=== PATIENT | female | born 1955 | race African-American/Black ===

== ENCOUNTER 2017-12-03 17:24 | Emergency (ER) | payer OTHER ==
[2017-12-03] MEDS ORDERED: HYDROCODONE/APAP 5/325 MG TAB ONE (18:46)
--- NOTE | 2017-12-03 18:56 | RAD REPORT ---
EXAM DESCRIPTION: RAD - Knee Left 3 View - 12/03/2017 6:47 pm CLINICAL HISTORY: Left knee pain FINDINGS: No fracture or dislocation is seen. No significant bone or joint abnormality is seen
[2017-12-03 19:15] LABS: Urine Blood 1+ (NEG); Urine Glucose NEGATIVE (NEG); Urine Protein NEGATIVE (NEG); Urine Specific Gravity 1.025 (1.005-1.030); Urine pH 5.5 (5.0-7.0)
--- NOTE | 2017-12-03 19:18 | EDPHYS ---
Physician Documentation [facility] Name: Dilan Calzada Age: 62 yrs Sex: Female : 1955 Arrival Date: 12/03/2017 Time: 17:30 Bed 18 Private MD: ED Steven Rizo HPI: 12/03 18:19 This 62 yrs old Black Female presents to ER via Ambulatory with complaints of Leg Pain. jony 18:19 The patient presents with decreased range of motion, pain, swelling, tenderness. The jony complaints affect the posterior aspect of left knee. Context: The problem was sustained at an unknown site. Onset: The symptoms/episode began/occurred 2 day(s) ago. Modifying factors: The symptoms are alleviated by elevating leg, the symptoms are aggravated by movement, weight bearing, bending knee. Associated signs and symptoms: The patient has no apparent associated signs or symptoms. Treatment prior to arrival includes: prescription medications. The patient has experienced similar episodes in the past, a few times. Historical: - Allergies: 17:40 PENICILLINS; lk1 - Home Meds: 18:05 Lyrica Oral [Active]; Menest 0.625 mg oral tab 1 tab once daily [Active]; Dexilant 60 ap3 mg oral CpDB 1 cap once daily [Active]; montelukast 10 mg oral tab 1 tab once daily [Active]; Vitamin D Oral [Active]; Xanax 1 mg Oral tab as needed [Active]; levocetirizine 5 mg oral tab 1 tab once daily [Active]; Estroven 155 mg oral cap [Active]; meloxicam 15 mg oral tab [Active]; Calcium Carbonate Oral [Active]; - PMHx: 17:40 None; lk1 - PSHx: 17:40 torn meniscus right; bilateral shoulders; partial thyroidectomy; Hysterectomy; lk1 - Immunization history:: Adult Immunizations up to date. - Social history:: Smoking status: Patient/guardian denies using tobacco. - Family history:: not pertinent. ROS: 18:19 Constitutional: Negative for fever, chills, and weight loss, Eyes: Negative for injury, jony pain, redness, and discharge, ENT: Negative for injury, pain, and discharge, Neck: Negative for injury, pain, and swelling, Cardiovascular: Negative for chest pain, palpitations, and edema, Respiratory: Negative for shortness of breath, cough, wheezing, and pleuritic chest pain, Abdomen/GI: Negative for abdominal pain, nausea, vomiting, diarrhea, and constipation, Back: Negative for injury and pain, : Negative for injury, bleeding, discharge, and swelling, Skin: Negative for injury, rash, and discoloration, Neuro: Negative for headache, weakness, numbness, tingling, and seizure, Psych: Negative for depression, anxiety, suicide ideation, homicidal ideation, and hallucinations, Allergy/Immunology: Negative for hives, rash, and allergies, Endocrine: Negative for neck swelling, polydipsia, polyuria, polyphagia, and marked weight changes, Hematologic/Lymphatic: Negative for swollen nodes, abnormal bleeding, and unusual bruising. 18:19 MS/extremity: Positive for decreased range of motion, pain, swelling, tenderness, of the left leg. Exam: 18:19 Constitutional: This is a well developed, well nourished patient who is awake, alert, jony and in no acute distress. Head/Face: Normocephalic, atraumatic. Eyes: Pupils equal round and reactive to light, extra-ocular motions intact. Lids and lashes normal. Conjunctiva and sclera are non-icteric and not injected. Cornea within normal limits. Periorbital areas with no swelling, redness, or edema. ENT: Nares patent. No nasal discharge, no septal abnormalities noted. Tympanic membranes are normal and external auditory canals are clear. Oropharynx with no redness, swelling, or masses, exudates, or evidence of obstruction, uvula midline. Mucous membranes moist. Neck: Trachea midline, no thyromegaly or masses palpated, and no cervical lymphadenopathy. Supple, full range of motion without nuchal rigidity, or vertebral point tenderness. No Meningismus. Chest/axilla: Normal chest wall appearance and motion. Nontender with no deformity. No lesions are appreciated. Cardiovascular: Regular rate and rhythm with a normal S1 and S2. No gallops, murmurs, or rubs. Normal PMI, no JVD. No pulse deficits. Respiratory: Lungs have equal breath sounds bilaterally, clear to auscultation and percussion. No rales, rhonchi or wheezes noted. No increased work of breathing, no retractions or nasal flaring. Abdomen/GI: Soft, non-tender, with normal bowel sounds. No distension or tympany. No guarding or rebound. No evidence of tenderness throughout. Back: No spinal tenderness. No costovertebral tenderness. Full range of motion. Female : Normal external genitalia. Skin: Warm, dry with normal turgor. Normal color with no rashes, no lesions, and no evidence of cellulitis. Neuro: Awake and alert, GCS 15, oriented to person, place, time, and situation. Cranial nerves II-XII grossly intact. Motor strength 5/5 in all extremities. Sensory grossly intact. Cerebellar exam normal. Normal gait. Psych: Awake, alert, with orientation to person, place and time. Behavior, mood, and affect are within normal limits. 18:19 Musculoskeletal/extremity: Extremities: noted in the posterior aspect of left knee: decreased ROM, pain. Vital Signs: 17:40 BP 159 / 85; Pulse 62; Resp 15; Temp 97.4(O); Pulse Ox 98% on R/A; Weight 81.65 kg (R); lk1 Height 5 ft. 3 in. (160.02 cm) (R); Pain 6/10; 18:42 BP 136 / 90; Pulse 67; Pulse Ox 97% on R/A; ap3 19:54 BP 142 / 96; Pulse 58; Resp 17 S; Pulse Ox 98% on R/A; jd3 17:40 Body Mass Index 31.89 (81.65 kg, 160.02 cm) lk1 MDM: 18:09 [facility] 18:19 Data reviewed: vital signs, nurses notes, lab test result(s), radiologic studies, plain jony films, ultrasound. 12/03 18:23 Order name: Urine Culture [facility] 12/03 18:49 Order name: Urine Dipstick--Ancillary (enter results) 12/03 18:19 Order name: Knee Left 3 View XRAY [facility] 12/03 18:19 Order name: US Extremity Venou Bilateral [facility] 12/03 18:23 Order name: Urine Dipstick-Ancillary (obtain specimen); Complete Time: 18:47 [facility] Administered Medications: 18:31 Drug: [place] 5 mg-325 mg 2 tabs Route: PO; ae1 19:27 Follow up: Response: No adverse reaction; Pain is decreased jd3 Disposition: 12/03/17 19:18 Discharged to Home. Impression: Pain in left leg. - Condition is Stable. - Discharge Instructions: Musculoskeletal Pain, Knee Pain, Knee Pain, [id number]. - Prescriptions for Tylenol- Codeine #3 300-30 mg Oral Tablet - take 2 tablet by ORAL route every 6 hours As needed; 30 tablet. - Medication Reconciliation Form, Thank You Letter, Antibiotic Education, Prescription Opioid Use form. - Follow up: Private Physician; When: 2 - 3 days; Reason: Recheck today's complaints, Continuance of care, Re-evaluation by your physician. Follow up: Abdoul Godinez; When: 2 - 3 days; Reason: Recheck today's complaints, Re-evaluation by your physician. - Problem is new. - Symptoms have improved. Signatures: Dispatcher [employer] EDSteven Velazquez MD MD cha Kluge, Leah RN RN lk1 Mir Lan RN RN ae1 Melchor Shi RN RN jd3 Jacqueline Warner3
--- NOTE | 2017-12-03 19:18 | ER ---
Nurse's Notes [facility] Name: Dilan Calzada Age: 62 yrs Sex: Female : 1955 Arrival Date: 12/03/2017 Time: 17:30 Bed 18 Private MD: Diagnosis: Pain in left leg Presentation: 12/03 17:37 Presenting complaint: Patient states: "I went to the doctor Friday for pain in my legs lk1 and had blood work done and it was all fine. I got Meloxicam and an injection. I have been walking, but am in pain. This afternoon it got worse and I can't walk on my left leg.". Transition of care: patient was not received from another setting of care. Onset of symptoms was November 25, 2017. Care prior to arrival: None. 17:37 Method Of Arrival: Ambulatory lk1 17:37 Acuity: PIETER 4 lk1 Triage Assessment: 17:40 General: Appears in no apparent distress. Behavior is calm, cooperative, appropriate lk1 for age. Pain: Complains of pain in left knee Pain currently is 6 out of 10 on a pain scale. at worst was 10 out of 10 on a pain scale. Historical: - Allergies: 17:40 PENICILLINS; lk1 - Home Meds: 18:05 Lyrica Oral [Active]; Menest 0.625 mg oral tab 1 tab once daily [Active]; Dexilant 60 ap3 mg oral CpDB 1 cap once daily [Active]; montelukast 10 mg oral tab 1 tab once daily [Active]; Vitamin D Oral [Active]; Xanax 1 mg Oral tab as needed [Active]; levocetirizine 5 mg oral tab 1 tab once daily [Active]; Estroven 155 mg oral cap [Active]; meloxicam 15 mg oral tab [Active]; Calcium Carbonate Oral [Active]; - PMHx: 17:40 None; lk1 - PSHx: 17:40 torn meniscus right; bilateral shoulders; partial thyroidectomy; Hysterectomy; lk1 - Immunization history:: Adult Immunizations up to date. - Social history:: Smoking status: Patient/guardian denies using tobacco. - Family history:: not pertinent. Screenin:05 Abuse screen: Denies threats or abuse. Nutritional screening: No deficits noted. ap3 Tuberculosis screening: No symptoms or risk factors identified. 18:06 Fall Risk None identified. ap3 Assessment: 17:57 General: Appears in no apparent distress. well groomed, Behavior is calm, cooperative. ap3 Pain: Complains of pain in right and left knee Pain radiates to posterior right and left knee Pain currently is 6 out of 10 on a pain scale. at worst was 10 out of 10 on a pain scale. Pain began 11/25/2017 Alleviated by rest, Aggravated by standing. Neuro: Level of Consciousness is awake, alert, obeys commands, Oriented to person, place, time, situation. Cardiovascular: Patient's skin is warm and dry. Respiratory: Airway is patent. GI: No signs and/or symptoms were reported involving the gastrointestinal system. : No signs and/or symptoms were reported regarding the genitourinary system. EENT: No signs and/or symptoms were reported regarding the EENT system. Derm: Skin is normal. Musculoskeletal: Reports pain in onel knees. 18:31 Reassessment: provided patient with bedside commode. ap3 19:02 Reassessment: Report and hand off care to Rinku Rodarte RN. ae1 19:53 Reassessment: Patient appears in no apparent distress at this time. Patient and/or jd3 family updated on plan of care and expected duration. Pain level reassessed. Patient is alert, oriented x 3, equal unlabored respirations, skin warm/dry/pink. pt reported understanding of discharge instructions, waiting for ride Patient states feeling better. 20:39 Reassessment: Patient appears in no apparent distress at this time. Patient and/or jd3 family updated on plan of care and expected duration. Pain level reassessed. Patient is alert, oriented x 3, equal unlabored respirations, skin warm/dry/pink. pt reported understanding of discharge instructions, pt assisted to front of ER with wheelchair. Vital Signs: 17:40 BP 159 / 85; Pulse 62; Resp 15; Temp 97.4(O); Pulse Ox 98% on R/A; Weight 81.65 kg (R); lk1 Height 5 ft. 3 in. (160.02 cm) (R); Pain 6/10; 18:42 BP 136 / 90; Pulse 67; Pulse Ox 97% on R/A; ap3 19:54 BP 142 / 96; Pulse 58; Resp 17 S; Pulse Ox 98% on R/A; jd3 17:40 Body Mass Index 31.89 (81.65 kg, 160.02 cm) lk1 ED Course: 17:30 Patient arrived in ED. rg4 17:39 Triage completed. lk1 17:40 Arm band placed on right wrist. lk1 18:06 Patient has correct armband on for positive identification. Placed in gown. Bed in low ap3 position. Call light in reach. Side rails up X 1. 18:09 Steven Lake MD is Attending Physician. jony 18:19 Mir Lan, RN is Primary Nurse. ae1 18:42 X-ray completed. Portable x-ray completed in exam room. Patient tolerated procedure kc2 well. 18:43 Knee Left 3 View XRAY In Process Unspecified. EDMS 19:09 Primary Nurse role handed off by Mir Lan, RN jessi 19:09 Melchor Shi, DORIS is Primary Nurse. jd3 19:13 US Extremity Venou Bilateral In Process Unspecified. EDMS 19:18 Abdoul Godinez MD is Referral Physician. [facility] 19:49 No provider procedures requiring assistance completed. Patient did not have IV access jd3 during this emergency room visit. Administered Medications: 18:31 Drug: [place] 5 mg-325 mg 2 tabs Route: PO; ae1 19:27 Follow up: Response: No adverse reaction; Pain is decreased jd3 Outcome: 19:01 Attestation : I agree with the charting done by Jacqueline Warner, director industrial nursing. . ae1 19:18 Discharge ordered by . [facility] 19:52 Condition: stable jd3 19:52 Discharge instructions given to patient, Instructed on discharge instructions, follow up and referral plans. medication usage, Demonstrated understanding of instructions, follow-up care, medications, Prescriptions given X 1. 20:38 Discharged to home via wheelchair. jd3 20:40 Patient left the ED. jd3 Signatures: Dispatcher [employer] EDND Steven Lake MD MD cha Kluge, Leah, RN RN lk1 Yi Foss kc2 Mir Lan, RN RN ae1 Dinah Pham rg4 Melchor Shi RN RN jd3 Prokisch, Amanda 3 Corrections: (The following items were deleted from the chart) 20:00 19:53 Reassessment: Patient appears in no apparent distress at this time. Patient jd3 and/or family updated on plan of care and expected duration. Pain level reassessed. Patient is alert, oriented x 3, equal unlabored respirations, skin warm/dry/pink. pt reported understanding of discharge instructions Patient states feeling better. jd3
--- NOTE | 2017-12-03 19:25 | RAD REPORT ---
EXAM DESCRIPTION: VASExtrem Venous W Compress Bil12/03/2017 7:13 pm CLINICAL HISTORY: Bilateral leg pain COMPARISON: none FINDINGS: The common femoral, superficial femoral, popliteal and posterior tibial veins bilaterally are compressible and demonstrate augmentation. Doppler demonstrates good flow. IMPRESSION: No evidence of deep venous thrombosis involving either lower extremity.
== END 2017-12-03 20:40 | disposition home or self-care (01) ==
LOC: ER 17:24
DX: M25.562 Pain in left knee (principal); X58.XXXA Exposure to other specified factors, initial encounter; Y93.9 Activity, unspecified; Y92.9 Unspecified place or not applicable; Z88.0 Allergy status to penicillin
CPT/HCPCS: 81003; 87086; 87088; 93970; 99283